=== PATIENT | female | born 1975 | race Caucasian/White ===

== ENCOUNTER 2020-07-15 10:08 | Outpatient (CLI) | payer BC, SELFPAY ==
--- NOTE | ~2020-07-15 | XR_ITS ---
EXAMINATION: XR lumbar spine 2-3V DATE: 07/15/2020 11:31 INDICATION: Low back pain TECHNIQUE: Anteroposterior and lateral views of the lumbar spine, and cone-down lateral view of the l umbosacral junction were obtained. COMPARISON: None. FINDINGS: There is no fracture, dislocation, or subluxation. Mild loss of intervertebral disc space h eight is present at L4-5. The vertebral body heights are maintained. There is moderate facet osteoart hritis of the lower lumbar spine. The bowel gas pattern is normal. IMPRESSION: 1. Mild lumbar spondylosis without acute findings. Reviewed, dictated and finalized at location A. E BANDER
--- NOTE | ~2020-07-15 | XR_ITS ---
EXAMINATION: XR chest 2V EXAM DATE: 07/15/2020 12:24 INDICATION: Low back pain. Smoking history. TECHNIQUE: Frontal and lateral projections of the chest obtained and reviewed. There is no prior mario dy for comparison. FINDINGS: The lungs are clear. There are no pleural effusions. The cardiomediastinal silhouette is within normal limits. There is no pneumothorax suspected. The bones and soft tissues are unremarkab le. IMPRESSION: Unremarkable chest x-ray exam. Reviewed, dictated and finalized at location B. B LIAISON
[2020-07-15 11:24] LABS: Hematocrit 39.1 % (37.0-47.0); Hemoglobin 12.7 g/dL (12.0-15.0); Mean Corpuscular HGB Conc 32.5 g/dl (32-36); Mean Corpuscular Hemoglobin 26.9 pg (26-34); Mean Corpuscular Volume 82.8 fl (80-100); Mean Platelet Volume 11.4 fl (7.4-10.4); Platelet Count Result 212 k/mm3 (150-375); Red Blood Count 4.72 M/mm3 (4.2-5.4); Red Cell Distribution Width 13.7 % (11.5-14.5); White Blood Count 6.7 K/mm3 (4.5-10.0)
[2020-07-15 11:29] LABS: Add Urine Microscopic? YES; Appearance Urine Cloudy (Clear); Bacteria Urine Trace /hpf; Bilirubin Urine Negative (Negative); Blood Urine Negative (Negative); Color Urine Yellow (Yellow); Glucose Urine UA Negative (Negative); Ketones Urine Negative (Negative); Leukocyte Esterase Ur Trace LEU/UL (NEGATIVE); Mucus Urine Rare /lpf; Nitrate Urine Negative (Negative); Protein Urine Negative (Negative); Specific Grav Ur 1.016 (1.001-1.035); Squamous Epithelial Cell Urine Many /hpf (Few); Urobilinogen Urine Negative mg/dL (<2.0)
[2020-07-15 11:48] LABS: Alanine Aminotransferase 27 U/L (4-35); Albumin Level 3.8 g/dL (3.5-5.1); Alkaline Phosphatase 110 U/L (38-126); Anion Gap 6 mmol/L (8-16); Aspartate Amino Transferase 30 U/L (14-36); Bilirubin,Total 0.4 mg/dL (0.2-1.3); Blood Urea Nitrogen 11 mg/dL (7-17); Carbon Dioxide 31 mmol/L (22-30); Chloride 105 mmol/L (98-107); Cholesterol 157 mg/dL (0-200); Estimated Glomerular Filt Rate > 60; Glucose 95 mg/dL (65-105); HDL Direct 50 mg/dL; Potassium 4.1 mmol/L (3.4-5.0); Sodium 142 mmol/L (137-145); Triglycerides 75 mg/dL (<150)
[2020-07-15 11:49] LABS: Rheumatoid Factor < 8.6 IU/ML (<12)
[2020-07-15 11:54] LABS: Erythrocyte Sedimentation Rate 22 mm/hr (0-20)
[2020-07-15 11:59] LABS: LDL Cholesterol Direct 90 mg/dL
[2020-07-15 12:21] LABS: Thyroid Stimulating Hormone < 0.015 uIU/mL (0.465-4.680)
[2020-07-15 12:55] LABS: Folic Acid 16.2 ng/mL (2.76->20); Free T4 Free Thyroxine 2.56 ng/mL (0.78-2.19); Vitamin D 25 Hydroxy 42.2 ng/mL
[2020-07-15 14:03] LABS: MALB Creatinine Ratio < 10.0 mg/g (0-30); Microalbumin Urine Random < 6.0 mg/L (0-16.7)
[2020-07-18 14:57] LABS: Vitamin B6 11.4 ng/mL (2.1-21.7)
[2020-07-19 23:07] LABS: Anti Nuclear Antibody Pattern Nuclear, Speckled; Anti Nuclear Antibody Titer 1:40 (Negative)
== END 2020-07-15 10:09 | disposition home or self-care (01) ==
PROVIDERS: PCP Emergency Medicine; Visit Provider Emergency Medicine
DX: R00.0 Tachycardia, unspecified (principal); M47.896 Other spondylosis, lumbar region; F31.9 Bipolar disorder, unspecified
CPT/HCPCS: 36415; 71046; 72100; 80053; 80061; 81001; 82043; 82306; 82607; 82746; 84207; 84439; 84443; 85027; 85652; 86038; 86039; 86430

== ENCOUNTER 2020-07-16 15:57 | Outpatient (CLI) | payer BC, SELFPAY ==
[2020-07-16 17:18] LABS: Thyroid Stimulating Hormone < 0.015 uIU/mL (0.465-4.680)
[2020-07-16 18:55] LABS: Free T4 Free Thyroxine 2.93 ng/mL (0.78-2.19)
[2020-07-20 00:31] LABS: Thyroid Peroxidase Antibodies 46 IU/mL (<9)
[2020-07-20 06:35] LABS: Triiodothyronine T3 Free 12.1 pg/mL (2.3-4.2)
== END 2020-07-16 15:58 | disposition home or self-care (01) ==
LOC: ANHLAB 16:02
PROVIDERS: PCP Emergency Medicine; Visit Provider Emergency Medicine
DX: E03.9 Hypothyroidism, unspecified (principal)
CPT/HCPCS: 36415; 84439; 84443; 84481; 86376

== ENCOUNTER 2020-07-22 17:14 | Outpatient (CLI) | payer BC, SELFPAY ==
--- NOTE | ~2020-07-22 | US_ITS ---
EXAMINATION: US thyroid DATE: 07/22/2020 17:57 INDICATION: Hyperthyroidism. TECHNIQUE: Multiple ultrasound images of the thyroid were obtained. COMPARISON: None. FINDINGS: The right thyroid lobe measures 5.5 x 1.7 x 2.0 cm. The left thyroid lobe measures 5.1 x 2.3 x 2.2 c m. The thyroid demonstrates heterogeneous echogenicity. Vascularity is increased. In the right thyro id lobe, there is a 12 mm solid, hypoechoic, tgnbh-fqah-xwzz nodule with ill-defined margin without e chogenic foci (TI-RADS TR4). In the left thyroid lobe, there is a 9 mm solid, isoechoic, eaofs-xhoe-k all nodule with ill-defined margin without echogenic foci (TR3). IMPRESSION: 1. Thyroid nodules. Thyroid ultrasound is recommended in one year. 2. Heterogeneous, hypervascular thyroid, consistent with chronic lymphocytic (Dona) thyroiditis. Reviewed, dictated and finalized at location B. DEVELOPER IMPRESSION: 1. Thyroid nodules. Thyroid ultrasound is recommended in one year. 2. Heterogeneous, hypervascular thyroid, consistent with chronic lymphocytic (H ashimoto) thyroiditis.
== END 2020-07-22 17:15 | disposition home or self-care (01) ==
PROVIDERS: PCP Emergency Medicine; Visit Provider Emergency Medicine
DX: E03.9 Hypothyroidism, unspecified (principal); E04.2 Nontoxic multinodular goiter
CPT/HCPCS: 76536

== ENCOUNTER 2020-08-05 16:29 | Outpatient (CLI) | payer BC, SELFPAY ==
--- NOTE | ~2020-08-05 | MM_ITS ---
EXAMINATION: MM screening roque BI w elodia HISTORY: Screening mammogram TECHNIQUE: Craniocaudal and mediolateral oblique 3-D tomosynthesis images were obtained and synthetic 2-D images were generated. CAD analysis was submitted and interpreted. COMPARISON: No prior mammogram is available for comparison at this institution. BREAST PARENCHYMAL COMPOSITION: There are scattered areas of fibroglandular density. FINDINGS: There is no evidence of suspicious mass, calcification, or architectural distortion to sugg est malignancy in either breast. There has been no suspicious interval change. IMPRESSION: 1. No mammographic evidence of malignancy. 2. Recommend routine screening mammography in one year. BI-RADS Category 1: Negative Reviewed, dictated and finalized at location A. WILLOW SPECIALIST
== END 2020-08-05 16:30 | disposition home or self-care (01) ==
LOC: ANHIMG 16:36
PROVIDERS: PCP Emergency Medicine; Visit Provider Emergency Medicine
DX: Z12.31 Encounter for screening mammogram for malignant neoplasm of breast (principal)
CPT/HCPCS: 77063; 77067

== ENCOUNTER 2020-11-19 16:54 | Emergency (ER) | payer BC, SELFPAY ==
--- NOTE | ~2020-11-19 | XR_ITS ---
XR shoulder RT min 2V 11/19/2020 17:41 INDICATION: Right shoulder pain for 2 days PROCEDURE: 4 views right shoulder COMPARISON: No prior studies for comparison. FINDINGS: Fracture, dislocation or subluxation is not identified. The soft tissues appear within norm al limits. No foreign bodies are identified. IMPRESSION: 1: NO ACUTE BONE OR JOINT ABNORMALITY IDENTIFIED. Reviewed, dictated and finalized at location A. ITE DESIGNER
[2020-11-19 17:07] VITALS: BP 117/54; PULSE 110; RESP 16; TEMP 36.2; O2SAT 98
--- NOTE | 2020-11-19 17:26 | PC.NURSE ---
JESENIA Rivera at bedside.
[2020-11-19 17:28] VITALS: BP 117/54; PULSE 92; RESP 15; TEMP 36.2; O2SAT 99
[2020-11-19] MEDS: KETOROLAC (*BKC) 60 MG/2 ML VIAL IM (17:35)
--- NOTE | 2020-11-19 18:26 | ED.GENADULT ---
HPI - General Adult General Chief complaint: Extremity Injury, Upper Stated complaint: right shoulder pain Time Seen by Provider: 11/19/20 17:24 History of Present Illness HPI narrative: Patient is a 45-year-old female who presents ER with right shoulder pain. Reports yesterday she was at the store when she put her purse on her shoulder and she developed pain. She reports today she tried to lift a jug of milk to feed her grandbaby and it caused her discomfort and pain. No numbness or tingling. No deformity. She not feel her arm slide out of socket. Has not had similar symptoms previously. She does have tightness going into her upper shoulder as well. Related Data Home Medications Medication Instructions Recorded Confirmed methimazole 11/19/20 11/19/20 metoprolol tartrate 11/19/20 Allergies Allergy/AdvReac Type Severity Reaction Status Date / Time No Known Allergies Allergy Verified 11/19/20 17:35 Review of Systems Constitutional: Constitutional: Denies chills, Denies fever(s) and Denies weakness Musculoskeletal: Musculoskeletal: Denies back pain, Reports arthralgias, Denies joint swelling and Reports muscle cramps Neurologic: Denies focal weakness, Denies numbness and Denies weakness PMFSH Past Medical History Medical History (Updated 11/19/20 @ 18:31 by Hector Rivera MD) Lupus Surgical History Surgical History (Updated 11/19/20 @ 18:27 by Hector Rivera MD) No pertinent past surgical history Social History Social History (Updated 11/19/20 @ 18:27 by Hector Rivera MD) Smoking status: Current every day smoker Gender identity (if verbalized by the patient): Female Exam Narrative: Exam Narrative: GENERAL: Well-appearing, well-nourished, and in no acute distress. HEAD: Normocephalic, atraumatic. EXTREMITIES: Focused exam of the right upper extremity reveals some discomfort over the deltoid and trapezius musculature. Patient has full range of motion passively. She has some difficulty with abduction with active range of motion. Neurovascular intact. SKIN: Warm, dry, no rash. NEURO: Alert and oriented x3. PSYCH: Normal mood and affect. Course Course Emergency Course: Unremarkable x-ray. Injury seems quite minor. Patient likely experiencing muscle spasm/strain. Will treat with anti-inflammatories muscle relaxers. Vital Signs Vital signs: Vital Signs Temperature 97.2 F L 11/19/20 17:07 Pulse Rate 110 H 11/19/20 17:07 Respiratory Rate 16 11/19/20 17:07 Blood Pressure 117/54 L 11/19/20 17:07 Pulse Oximetry 98 11/19/20 17:07 Temperature 97.2 F L 11/19/20 17:28 Pulse Rate 92 11/19/20 17:28 Respiratory Rate 15 11/19/20 17:28 Blood Pressure 117/54 L 11/19/20 17:28 Pulse Oximetry 99 11/19/20 17:28 Medical Decision Making Vital Signs Vital Signs: Vital Signs Temperature 97.2 F L 11/19/20 17:07 Pulse Rate 110 H 11/19/20 17:07 Respiratory Rate 16 11/19/20 17:07 Blood Pressure 117/54 L 11/19/20 17:07 Pulse Oximetry 98 11/19/20 17:07 Temperature 97.2 F L 11/19/20 17:28 Pulse Rate 92 11/19/20 17:28 Respiratory Rate 15 11/19/20 17:28 Blood Pressure 117/54 L 11/19/20 17:28 Pulse Oximetry 99 11/19/20 17:28 Imaging Data Radiologist's impression: ITS Impressions Shoulder X-Ray 11/19/20 17:42 IMPRESSION: 1: NO ACUTE BONE OR JOINT ABNORMALITY IDENTIFIED. Discharge Plan Discharge Clinical Impression: Right shoulder strain Patient Disposition: Home, Self-Care Condition: Stable Instructions: Exercises for Shoulder Flexion and Extension (ED), Exercises for Shoulder Abduction and Adduction (ED) Additional Instructions: Return the ER if you have chest pain or shortness of breath, you cannot keep down food or water, you have fever over 100.4 ?F, you have additional concerns. Follow-up with your primary care physician for further treatment evaluation. Take the naproxen with food to
== END 2020-11-19 18:37 | disposition home or self-care (01) ==
PROVIDERS: Emergency Provider Emergency Medicine; PCP Emergency Medicine
DX: S46.911A Strain of unspecified muscle, fascia and tendon at shoulder and upper arm level, right arm, initial encounter (principal); X58.XXXA Exposure to other specified factors, initial encounter
CPT/HCPCS: 73030; 96372; 99283; J1885

== ENCOUNTER 2020-12-16 19:27 | Emergency (ER) | payer BC, SELFPAY ==
[2020-12-16 19:30] VITALS: BP 130/56; PULSE 94; RESP 15; TEMP 36.5; O2SAT 98
--- NOTE | 2020-12-16 20:15 | ED.EAR ---
HPI - Ear Problem General Chief complaint: Ear Stated complaint: left earache Time Seen by Provider: 12/16/20 19:53 Source: patient Mode of arrival: ambulatory Limitations: no limitations History of Present Illness HPI Narrative: Patient is a 45-year-old female complaining of left ear pain x1 week. Patient denies any ear discharge. Patient denies any fever or chills. Patient denies any ear trauma. Denies any cough, cold or nasal congestion. Related Data Allergies Allergy/AdvReac Type Severity Reaction Status Date / Time No Known Allergies Allergy Verified 12/16/20 19:43 Review of Systems Review of Systems: All systems reviewed & are unremarkable except as noted in HPI and below PMFSH Social History Social History Gender identity (if verbalized by the patient): Female Comments Past medical history: None Family history: Noncontributory Social history: Smoker, no EtOH or drug use Exam Const: General: no acute distress and alert Orientation/consciousness: patient oriented x3 HENMT: Head: normal to inspection Ears: TM's normal bilaterally General nose exam: Normal external nose present, Normal nares present, no nasal discharge noted and no epistaxis Face and sinus: normal facial exam and no sinus tenderness Mouth: Yes moist mucous membranes Other: Erythematous left external ear canal, intact tympanic membrane, no discharge Course Vital Signs Vital signs: Vital Signs Temperature 36.5 C 12/16/20 19:30 Pulse Rate 94 12/16/20 19:30 Respiratory Rate 15 12/16/20 19:30 Blood Pressure 130/56 L 12/16/20 19:30 Pulse Oximetry 98 12/16/20 19:30 Temperature 36.5 C 12/16/20 19:30 Pulse Rate 94 12/16/20 19:30 Respiratory Rate 15 12/16/20 19:30 Blood Pressure 130/56 L 12/16/20 19:30 Pulse Oximetry 98 12/16/20 19:30 Medical Decision Making Differential Diagnosis Differential Diagnosis: Otitis media, otitis externa, foreign body Vital Signs Vital Signs: Vital Signs Temperature 36.5 C 12/16/20 19:30 Pulse Rate 94 12/16/20 19:30 Respiratory Rate 15 12/16/20 19:30 Blood Pressure 130/56 L 12/16/20 19:30 Pulse Oximetry 98 12/16/20 19:30 Temperature 36.5 C 12/16/20 19:30 Pulse Rate 94 12/16/20 19:30 Respiratory Rate 15 12/16/20 19:30 Blood Pressure 130/56 L 12/16/20 19:30 Pulse Oximetry 98 12/16/20 19:30 Discharge Plan Discharge Clinical Impression: Otitis externa Qualifiers: Otitis externa type: unspecified type Chronicity: acute Laterality: left Qualified Code(s): H60.502 - Unspecified acute noninfective otitis externa, left ear Patient Disposition: Home, Self-Care Condition: Stable Instructions: Otitis Externa (ED) Prescriptions: New hydrocortisone-acetic acid 1-2 % drops 4 drp LEFT EAR TID Qty: 10 RF: 0 Follow-up/Referrals: Jostin Awan MD [Primary Care Provider] - Time of Disposition: 20:21
== END 2020-12-16 20:35 | disposition home or self-care (01) ==
PROVIDERS: Emergency Provider Emergency Medicine; PCP Emergency Medicine
DX: H60.502 Unspecified acute noninfective otitis externa, left ear (principal)
CPT/HCPCS: 99283

== ENCOUNTER 2021-05-12 09:43 | Outpatient (CLI) | payer BC, SELFPAY ==
--- NOTE | ~2021-05-12 | XR_ITS ---
EXAMINATION: HAND-MACIEJ ARTHRITIS 3+VIEWS DATE: 05/12/2021 10:13 INDICATION: Unspecified osteoarthritis with bilateral hand pain. TECHNIQUE: Posteroanterior, lateral, and oblique views of the left and of the right hands as well as a ballcatchers view of both hands were obtained. COMPARISON: None. FINDINGS: Old healed fracture deformity at the head and neck of the left fifth metacarpal and also likely at th e neck of the right fifth metacarpal. Both have healed with some palmar angulation. Additional old do rsal avulsion fracture at the base of the right third distal phalanx. Bone alignment is otherwise nor mal at the bilateral hands and wrists. No acute fractures identified. Minimal to mild polyarticular o steoarthritis characterized by nonuniform joint space narrowing at multiple joints in the bilateral h ands and wrists. No erosions to suggest inflammatory arthritis. IMPRESSION: 1. 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 No erosions to suggest inflammatory arthritis. 2. Old healed fractures at the right third distal phalanx and at the distal aspect of the bilateral f ifth metacarpals. No acute osseous abnormality. Reviewed, dictated and finalized at location A. IMPRESSION: 1. Minimal to mild polyarticular osteoarthritis at multiple joints in the bilat eral hands and wrists. No erosions to suggest inflammatory arthritis. 2. Old healed fractures at the right third distal phalanx and at the distal asp ect of the bilateral fifth metacarpals. No acute osseous abnormality.
[2021-05-12 10:25] LABS: Complement C3 89 mg/dL (88-165)
[2021-05-14 11:06] LABS: SS-A <1.0; SS-B <1.0
[2021-05-14 13:40] LABS: SM Antibody <1.0; SM/RNP Antibody <1.0
[2021-05-14 20:48] LABS: Anti Nuclear Antibody Pattern Nuclear, Speckled; Anti Nuclear Antibody Titer 1:40 (Negative)
[2021-05-14 21:28] LABS: Anti Cardio Antibody IgM 6.7 MPL-U/mL (<20.0); Anti Cardiolipin Antibody IgA 3.1 APL-U/mL (<20.0); Anti Cardiolipin Antibody IgG 4.7 GPL-U/mL (<20.0)
[2021-05-15 04:02] LABS: Lupus dRVVT 1:1 Mix Interpreta Not Indicated; Lupus dRVVT Screen 39 sec (<=45); PTT-LA Screen 37 sec (<=40)
[2021-05-15 06:11] LABS: Thyroid Peroxidase Antibodies 24 IU/mL (<9)
[2021-05-15 23:47] LABS: Anti Cyclic Citrullinated Pept <16 Units (<20)
== END 2021-05-12 09:44 | disposition home or self-care (01) ==
LOC: ANHLAB 09:46
PROVIDERS: PCP Emergency Medicine; Visit Provider Internal Medicine
DX: M19.90 Unspecified osteoarthritis, unspecified site (principal); M47.816 Spondylosis without myelopathy or radiculopathy, lumbar region; R76.8 Other specified abnormal immunological findings in serum; M19.041 Primary osteoarthritis, right hand; M19.042 Primary osteoarthritis, left hand
CPT/HCPCS: 36415; 73130; 85613; 85730; 86038; 86039; 86146; 86147; 86160; 86200; 86225; 86235; 86376

== ENCOUNTER 2021-08-12 12:25 | Outpatient (CLI) | payer BC, SELFPAY ==
--- NOTE | ~2021-08-12 | US_ITS ---
EXAMINATION: US thyroid DATE: 08/12/2021 13:54 INDICATION: Nontoxic goiter. TECHNIQUE: Multiple ultrasound images of the thyroid were obtained. COMPARISON: Ultrasound 07/22/2020 FINDINGS: The right thyroid lobe measures 4.2 x 1.6 x 1.4 cm. The left thyroid lobe measures 5.1 x 1.9 x 1.8 c m. The thyroid demonstrates coarsened echotexture and increased vascularity. In the left thyroid lob e, there is a 8 mm solid, hypoechoic, cajaq-ygsk-efqc nodule with smooth margin without echogenic foc i (TI-RADS TR4). In the right thyroid lobe, there is a 7 mm solid, hypoechoic, nktqa-xfsv-plmd nodule with ill-defined margin without echogenic foci (TR4). IMPRESSION: 1. Small thyroid nodules, likely not clinically significant. No follow-up is needed. 2. Heterogeneous, hypervascular thyroid, consistent with chronic lymphocytic (Dona) thyroiditis. Reviewed, dictated and finalized at location A. PREVENTION MANAGER IMPRESSION: 1. Small thyroid nodules, likely not clinically significant. No follow-up is ne eded. 2. Heterogeneous, hypervascular thyroid, consistent with chronic lymphocytic (H ashimoto) thyroiditis.
--- NOTE | ~2021-08-12 | MR_ITS ---
EXAMINATION: MRI SACRUM W/O CONTRAST DATE: 08/13/2021 10:27 INDICATION: One year of low back pain, stiffness and burning discomfort. Abnormal immunologic finding s. TECHNIQUE: Magnetic resonance imaging (MRI) of the sacrum and coccyx was performed without intravenou s contrast. At patient request study was terminated prior to administration of implant intravenous co ntrast. Sequences included sagittal PD-weighted FS FSE; oblique axial T1-weighted FSE, T1-weighted FS FSE and T2-weighted FS FSE; oblique coronal T2-weighted FSE, T1-weighted FSE and T2-weighted FS FSE. COMPARISON: None. FINDINGS: Mild osteoarthritis at the right sacroiliac joint. No erosions or subarticular marrow signal changes at either sacral iliac joint to suggest inflammatory sacroiliitis. Mild to moderate bilateral lower l umbar facet osteoarthritis. Severe disc height loss with fibrovascular degenerative endplate changes at L4-L5. There is an associated annular fissure and disc extrusion extending from foraminal zone to foraminal zone. This contributes to mild central canal stenosis and mild left and moderate right neur al foraminal stenosis at this level. Tiny nabothian cyst at the cervix. Uterus and lateral unremarkab le. Tiny amount of likely physiologic free fluid in the cul-de-sac. Marrow signal is otherwise normal throughout with no fracture or pathologic marrow replacing process. IMPRESSION: 1. Mild right sacroiliac osteoarthritis. No findings to suggest inflammatory sacroiliitis. 2. Severe spondylosis at L4-L5 with mild central canal stenosis and mild left-sided and moderate righ t-sided neural foraminal stenosis. Reviewed, dictated and finalized at location A. FOOD CREW MEMBER IMPRESSION: 1. Mild right sacroiliac osteoarthritis. No findings to suggest inflammatory sa croiliitis. 2. Severe spondylosis at L4-L5 with mild central canal stenosis and mild left-s ided and moderate right-sided neural foraminal stenosis.
[2021-08-12 12:56] LABS: Estimated Glomerular Filt Rate > 60
[2021-08-12 15:09] LABS: Alanine Aminotransferase 17 U/L (4-35); Albumin Level 4.7 g/dL (3.5-5.1); Alkaline Phosphatase 118 U/L (38-126); Anion Gap 6 mmol/L (8-16); Aspartate Amino Transferase 22 U/L (14-36); Bilirubin,Total 0.2 mg/dL (0.2-1.3); Blood Urea Nitrogen 13 mg/dL (7-17); Calcium 9.2 mg/dL (8.4-10.2); Carbon Dioxide 28 mmol/L (22-30); Chloride 101 mmol/L (98-107); Estimated Glomerular Filt Rate > 60; Glucose 83 mg/dL (65-110); Potassium 4.4 mmol/L (3.4-5.0); Sodium 135 mmol/L (137-145)
[2021-08-12 15:34] LABS: Thyroid Stimulating Hormone 0.364 uIU/mL (0.465-4.680)
[2021-08-12 15:38] LABS: Free T4 Free Thyroxine 0.78 ng/mL (0.78-2.19)
[2021-08-14 14:16] LABS: Thyroid Stimulating Immunoglob 136 % baseline (<140)
[2021-08-16 04:54] LABS: Thyroid Peroxidase Antibodies 33 IU/mL (<9)
[2021-08-16 07:26] LABS: Triiodothyronine T3 Free 2.9 pg/mL (2.3-4.2)
== END 2021-08-12 12:26 | disposition home or self-care (01) ==
PROVIDERS: PCP Emergency Medicine; Visit Provider Internal Medicine Endocrinology, Diabetes & Metabolism
DX: R76.8 Other specified abnormal immunological findings in serum (principal); M16.0 Bilateral primary osteoarthritis of hip; E05.90 Thyrotoxicosis, unspecified without thyrotoxic crisis or storm; M47.896 Other spondylosis, lumbar region; M16.11 Unilateral primary osteoarthritis, right hip; M53.3 Sacrococcygeal disorders, not elsewhere classified; E04.2 Nontoxic multinodular goiter
CPT/HCPCS: 72197; 76536; 80053; 84439; 84443; 84445; 84481; 86376